=== PATIENT | female | born 1970 ===

== ENCOUNTER 2017-08-29 23:18 | Emergency (ER) | payer OTHER ==
[2017-08-29] MEDS ORDERED: Oxycodone/Acetaminophen 5/325 mg Tab PO STA (23:37)
[2017-08-29] MEDS ORDERED: Lidocaine 5% Patch TD STA (23:38)
[2017-08-29 23:42] VITALS: BMI 23.8
--- NOTE | 2017-08-29 23:42 | ED PDOC ---
Arrival/HPI - General Time Seen by Provider: 08/29/17 23:30 Historian: Patient - History of Present Illness Narrative History of Present Illness (Text): 08/29/17 23:39 Elizabeth Santana is a 47 year old female who presents to the emergency department complaining of left upper arm and left shoulder pain since today afternoon. States that pain initially presented 2 weeks ago while working out, which resolved after taking 2 Advils. Describes pain as a "burning" sensation which is worsened with movement. Denies any weakness, numbness to extremities. Denies any other complaints at this time. No cp or sob. Time/Duration: Other (today afternoon ) Symptom Onset: Gradual Severity Level: Mild Activities at Onset: Light Past Medical History - Provider Review Nursing Documentation Reviewed: Yes Family/Social History - Physician Review Nursing Documentation Reviewed: Yes Family/Social History: No Known Family HX Allergies/Home Meds Allergies/Adverse Reactions: Allergies No Known Allergies Allergy (Unverified 08/29/17 23:37) Review of Systems - Review of Systems Constitutional: absent: Fevers Respiratory: Normal. absent: SOB, Cough, Sputum Cardiovascular: absent: Chest Pain, Palpitations Musculoskeletal: Other (left shoulder/left upper arm pain ) Neurological: absent: Headache, Dizziness Physical Exam Vital Signs Reviewed: Yes Vital Signs Temp Pulse Resp BP Pulse Ox 08/29/17 23:46 99.1 F 57 L 18 120/87 99 Temperature: Afebrile Blood Pressure: Normal Pulse: Regular Respiratory Rate: Normal Appearance: Positive for: Non-Toxic, Uncomfortable (with shoulder movement) Pain Distress: Moderate Mental Status: Positive for: Alert and Oriented X 3 - Systems Exam Head: Present: Atraumatic, Normocephalic Neck: Present: Normal Range of Motion. No: Meningeal Signs, MIDLINE TENDERNESS Respiratory/Chest: Present: Clear to Auscultation, Good Air Exchange. No: Respiratory Distress, Accessory Muscle Use Cardiovascular: Present: Regular Rate and Rhythm, Normal S1, S2. No: Murmurs Upper Extremity: Present: NORMAL PULSES, Tenderness (tenderness to palpation of lateral aspect of left shoulder. Pain worse with abduction. ), Neurovascularly Intact, Other. No: Cyanosis, Swelling, Erythema, Temperature Abnormalties, Deformity Neurological: Present: GCS=15, CN II-XII Intact, Speech Normal Psychiatric: Present: Alert, Oriented x 3, Normal Insight, Normal Concentration Medical Decision Making ED Course and Treatment: 08/29/17 23:46 Impression: A 47 year old female who presents to the emergency department complaining of left shoulder pain since today afternoon. Differential: Tendonitis vs Bursitis vs pathologic fx Plan: -- Toradol -- Lidocaine -- Percocet -- L.shoulder X-ray -- Reassess and disposition Progress Notes: EKG: sinus bradycardia @ 57; no ST/T changes; normal intervals; normal axis. 08/30/17 00:41 Patient with L shoulder pain that is reproducible and worse with movement. No cp or sob; EKG is normal; highly doubt cardiac etiology to warrant a workup at this time. Patient given toradol and percocet with significant improvement in pain. MRI of of the shoulder was done in 2011 showing subacromial/subdeltoid bursitis. X-ray today showing calcification - likely calcific tendonitis vs bursitis - will d/c on nsaid and tramadol if pain is severe and f/u orthpedics. - RAD Interpretation Radiology Orders: 08/29/17 23:37 SHOULDER LEFT [RAD] Stat - Medication Orders Current Medication Orders: Discontinued Medications Ketorolac Tromethamine (Toradol) 60 mg IM STAT STA Stop: 08/29/17 23:38 Last Admin: 08/29/17 23:56 Dose: 60 mg MAR Pain Assessment Document 08/29/17 23:56 RD (Rec: 08/29/17 23:56 RD [id number]) Pain Reassessment Is this a pain reassessment? No Sleep Is patient sleeping during reassessment? No Presence of Pain Presence of Pain Yes IM Administration Charges Document 08/29/17 23:56 RD (Rec: 08/29/17 23:56 RD [id number]) Injection Site MAR Injection Site Right Deltoid Charges for Administration # of IM Administrations 1 Lidocaine (Lidoderm) 1 ea TD ONCE STA Stop: 08/29/17 23:39 Last Admin: 08/29/17 23:56 Dose: 1 ea MAR Transdermal Patch Site Document 08/29/17 23:56 RD (Rec: 08/29/17 23:56 RD [id number]) Transdermal Patch Site Transdermal Patch Site Left Shoulder Oxycodone/Acetaminophen (Percocet 5/325 Mg Tab) 1 tab PO STAT STA Stop: 08/29/17 23:38 Last Admin: 08/29/17 23:56 Dose: 1 tab MAR Pain Assessment Document 08/29/17 23:56 RD (Rec: 08/29/17 23:56 RD [id number]) Pain Reassessment Is this a pain reassessment? No Sleep Is patient sleeping during reassessment? No Presence of Pain Presence of Pain Yes - Scribe Statement The provider has reviewed the documentation as recorded by the Javieribe Geraldo Hoover Provider Attestation: Provider Scribe Attestation: All medical record entries made by the Scribe were at my direction and personally dictated by me. I have reviewed the chart and agree that the record accurately reflects my personal performance of the history, physical exam, medical decision making, and the department course for this patient. I have also personally directed, reviewed, and agree with the discharge instructions and disposition. Disposition/Present on Arrival - Present on Arrival Any Indicators Present on Arrival: No - Disposition Have Diagnosis and Disposition been Completed?: Yes Diagnosis: Left shoulder pain Disposition: HOME/ ROUTINE Disposition Time: 00:50 Patient Plan: Discharge Condition: GOOD Discharge Instructions (ExitCare): Calcific Tendinitis (ED), Shoulder Bursitis (ED) Additional Instructions: Take the medications as prescribed (naprosyn twice daily and tramadol if pain is still severe). Follow up with orthopedics. Return to the emergency department if any new concerning symptoms. Prescriptions: Naproxen [Naprosyn] 500 mg PO BID PRN #30 tab PRN Reason: Pain traMADol [Ultram] 1 tab PO Q8H PRN #15 tab PRN Reason: Pain, Severe (8-10) Referrals: Tomy Mcqueen MD [Staff Provider] - Follow up with primary Forms: WORK NOTE
[2017-08-29 23:49] VITALS: BP 120/87; PULSE 57; RESP 18; TEMP 99.1; O2SAT 99
--- NOTE | 2017-08-30 08:28 | RAD ---
PROCEDURE: Radiographs of the Left Shoulder HISTORY: L shoulder pain COMPARISON: No prior. FINDINGS: BONES: Normal. No fracture. JOINTS: Normal. Glenohumeral and acromioclavicular joints preserved. No osteoarthritis. SOFT TISSUES: Small soft tissue calcifications are seen adjacent to the humeral head consistent with calcific tendinitis or bursitis OTHER FINDINGS: None. IMPRESSION: Small soft tissue calcifications are seen adjacent to the humeral head consistent with calcific tendinitis or bursitis
--- NOTE | 2017-08-30 11:41 | CARD ---
APPROVED REPORT EKG Measurement Heart [id number] <Conclusion> Sinus bradycardia Otherwise normal ECG
== END 2017-08-30 01:05 | disposition home or self-care (01) ==
LOC: ED 23:18
DX: M25.512 Pain in left shoulder (principal)
CPT/HCPCS: 73030; 93005; 96372; 99283; J1885